=== PATIENT | female | born 1950 | race Caucasian/White ===

== ENCOUNTER 2017-07-02 14:57 | Day surgery (SDC) | payer OTHER ==
[2017-06-30 11:06] VITALS: BP 140/69
[2017-06-30 11:12] LABS: CREATININE 0.8 mg/dL (0.5-1.5); POTASSIUM 4.1 mmol/L (3.5-5.1)
[2017-06-30 11:14] LABS: BASOPHILS % (AUTO) 0.4 % (0.0-5.0); EOSINOPHILS % (AUTO) 1.6 % (0.0-8.0); HEMATOCRIT 38.4 % (36-48); LYMPHOCYTES % (AUTO) 25.1 % (21.0-51.0); MEAN CORPUSCULAR HEMOGLOBIN 32.1 pg (27.0-33.0); MEAN CORPUSCULAR HGB CONC 35.1 g/dL (32.0-36.0); MEAN CORPUSCULAR VOLUME 91.6 fL (79-99); MONOCYTES % (AUTO) 8.2 % (3.0-13.0); NEUTROPHILS % (AUTO) 64.7 % (40.0-77.0); NUCLEATED RED BLOOD CELLS 0.1 % (0.0-0.19); PLATELET COUNT (AUTO) 343 K/uL (130-400); RED BLOOD CELL COUNT(AUTO) 4.19 MIL/uL (4.00-5.50); RED CELL DISTRIBUTION WIDTH 12.8 % (11.0-15.5); WHITE BLOOD COUNT (AUTO) 7.1 K/uL (4.8-10.8)
[2017-06-30 11:33] LABS: INR 0.93 (0.85-1.15); PARTIAL THROMBOPLASTIN TIME 25.2 SEC (26.3-35.5); PROTHROMBIN TIME 9.8 SEC (9.6-11.6)
[2017-06-30 12:03] LABS: APPEARANCE,URINE Clear (CLEAR); BILIRUBIN,URINE Negative (NEGATIVE); COLOR,URINE Yellow (YELLOW); GLUCOSE, URINE (UA) Negative (NEGATIVE); KETONES,URINE Negative (NEGATIVE); LEUKOCYTE ESTERASE ,URINE Moderate (NEGATIVE); NITRATE,URINE Negative (NEGATIVE); OCCULT BLOOD,URINE Negative (NEGATIVE); PH,URINE 7.5 (5.0-8.0); PROTEIN,URINE Negative (NEGATIVE); UROBILINOGEN,URINE 0.2 mg/dL (0.2-1.0)
[2017-06-30 12:36] LABS: BACTERIA,URINE Rare /HPF (None Seen); RBC,URINE None Seen /HPF (0-1)
[2017-07-02] VITALS (14 sets, daily range): BP systolic 111–158; BP diastolic 43–77
[~2017-07-02] VITALS: Ht 172.7 cm; Wt 75.8 kg
[~2017-07-02 14:57] MED LIST: ACET-2041 PO; CA C1TAB90 PO; CRAN1CAP5 PO; GLUC-252 PO; HEPARIN SODIUM 1000UNIT/ML 10ML VIAL ONE; IOPAMIDOL-370 100 ML VIAL IV ONE; ISOVUE-370 50ML VIAL IV ONE; LABETALOL HCL 5 MG/ML 20ML VIAL IV ONE; LIDOCAINE HCL 2% 20ML ONE; LISI1TAB13 PO; MELA1TAB28 PO; METO25TA6 PO; METOPROLOL TARTRATE 25 MG TAB PO SCH; MULT-1267 PO; NAPR-1023 PO; NITROGLYCERIN 4.1 GM SPRAY TL ONE; NITROGLYCERIN 5 MG/ML 10 ML VIAL IV ONE; OMEG-108 PO; OMEP20TA25 PO; POTA99TA21 PO; SIMV40TA5 PO; SODIUM CHLORIDE 0.9% 10 ML VIAL IVP SCH; SODIUM CHLORIDE 0.9% 1000ML 1,000 ML IV ONE; VITA400C70 PO; [UNRECOGNIZED DRUG - OTHER] TP
== END 2017-07-02 16:05 | disposition home or self-care (01) ==
LOC: DAH 14:57
PROVIDERS: ATTEND Internal Medicine Cardiovascular Disease
DX: I25.119 Atherosclerotic heart disease of native coronary artery with unspecified angina pectoris (principal); Z79.899 Other long term (current) drug therapy; E78.00 Pure hypercholesterolemia, unspecified; I11.9 Hypertensive heart disease without heart failure; Z79.01 Long term (current) use of anticoagulants
CPT/HCPCS: 36415; 71045; 80048; 81001; 85025; 85610; 85730; 93005; 93458; A4606; C1894; J1644 ×2; J3490 ×3; J7030; Q9967 ×2